=== PATIENT | female | born 1935 | race Caucasian/White ===

== ENCOUNTER 2018-03-24 03:57 | Emergency (ER) | payer MEDICARE, BC, SELFPAY ==
[2018-03-24 04:00] VITALS: BP 173/69; PULSE 68; RESP 18; TEMP 36.6; O2SAT 95; BMI 24.7
--- NOTE | 2018-03-24 04:11 | ED.VISSUMM ---
- ER Visit Summary Date of Service: 03/24/18 Chief Complaint: [] Skin rash History of Present Illness: The patient is a 82 F suspect that she has had poison servando for last 4-5 days. She was doing some yard work pulling weeds prior and thinks she got into poison servando. She has been using cortisone cream and calamine lotion on a rash mainly on her hands and distal arms. She also has it on her face and neck.. This is been helping minimally. Comes in for further evaluation Physical Examination: [] Vital signs reviewed General: Well-nourished well-developed Head: Normocephalic atraumatic Eyes: Pupils equal round and reactive to light extraocular movements intact ENT: TMs clear no hemotympanum no trauma Neck: Nontender full range of motion Cardiovascular: Regular rate rhythm no murmurs normal S1-S2 Respiratory: No distress clear to auscultation bilaterally chest nontender Abdomen: Soft nontender nondistended normal bowel sounds no masses Back: Nontender no CVA tenderness Extremities: Nontender active range of motion ?4 extremities no trauma Skin: Poison servando-like rash between her fingers and on the back of her hands her wrists and her face. Neuro alert oriented cranial nerves II through XII intact normal strength sensation reflexes Test Results: [] Emergency Department Course and Treatment: [] Patient given oral prednisone and will do a 10 day taper. We will continue the calamine lotion. Will follow-up as an outpatient Treatment Plan: [] Disposition: [] Impression: [] And IV dermatitis This note was generated with [employer] dictation software. It may contain incorrect words, spelling, and punctuation that were not noted in review of the chart prior to signing ED Disposition - Plan for ED Patient: Chief Complaint: Rash Referrals: Jude Lemus III, MD [Primary Care Provider] -
--- NOTE | 2018-03-24 04:12 | ED.DEP ---
ED Disposition - Plan for ED Patient: Disposition: Home or Assisted Living Chief Complaint: Rash Instructions: ED Dermatitis Poison Debo Prescriptions: Prednisone [Deltasone] See Taper PO DAILY #15 tab Referrals: Jude Lemus III, MD [Primary Care Provider] -
[2018-03-24] MEDS: predniSONE 20 MG Tablet 60 MG PO (04:19)
[2018-03-24] MEDS: Ondansetron ODT 4 MG Tablet PO (04:19)
== END 2018-03-24 04:25 | disposition home or self-care (01) ==
LOC: ED 04:24
PROVIDERS: Emergency Provider Emergency Medicine; Family Provider Family Medicine; PCP Family Medicine
DX: L23.7 Allergic contact dermatitis due to plants, except food (principal); I10 Essential (primary) hypertension; E78.00 Pure hypercholesterolemia, unspecified; Z79.899 Other long term (current) drug therapy
CPT/HCPCS: 99283

== ENCOUNTER 2018-06-06 08:02 | Emergency (ER) | payer MEDICARE, BC, SELFPAY ==
[2018-06-06 08:03] VITALS: BP 161/77; PULSE 52; RESP 16; TEMP 36.6; O2SAT 100; BMI 24.3
[2018-06-06 08:16] VITALS: BP 172/65; PULSE 58; RESP 13; O2SAT 99
--- NOTE | 2018-06-06 08:27 | EKG12_ITS ---
Test Reason : GEN ILLNESS Blood Pressure : / mmHG Vent. Rate : 052 BPM Atrial Rate : 052 BPM P-R Int : 172 ms QRS Dur : 090 ms QT Int : 464 ms P-R-T Axes : 036 059 066 degrees QTc Int : 431 ms Sinus bradycardia Otherwise normal ECG Confirmed by MONA OVERTON, MARIA DEL CARMEN ([id number]), market editor LAURA DEL RIO ([id number] on 06/10/2018 12:53:32 PM Referred By: HUSEYIN Confirmed By:MARIA DEL CARMEN DUNN MD
--- NOTE | 2018-06-06 08:27 | CT_ITS ---
STUDY: CT BRAIN WITHOUT CONTRAST REASON FOR EXAM: Female, 83 years old. Weakness and dizziness. RADIATION DOSAGE (If Supplied By Facility): CTDIvol = ( 44.99 ) mGy, DLP = ( 796.11 ) mGycm TECHNIQUE: Transaxial CT imaging of the brain was performed without administration of intravenous contrast material. Individualized dose optimization techniques were used for this CT. COMPARISON: 15 November 2004 FINDINGS: Normal soft tissue structures. Normal calvarium. There is mild cerebral atrophy with widening of the extra-axial spaces and ventricular dilatation. There are areas of decreased attenuation within the white matter tracts of the supratentorial brain, consistent with microvascular disease changes. There are small punctate calcifications of the basal ganglia which are seen in the aging brain as a normal variant. Normal brainstem. Normal cerebellum. There is no intracranial hemorrhage. There are no findings of an acute ischemic infarction. Normal visualized paranasal sinuses. CT/Brain/Head without Contrast IMPRESSION: Senescent changes with no evidence of acute intracranial bleed, mass or ischemia. Electronically Signed: Jessee Flores DO at 9:03 EST , Service support ,
--- NOTE | 2018-06-06 08:31 | ED.DCSUM_ITS ---
- ER Visit Summary Date of Service: 06/06/18 Chief Complaint: Fatigue History of Present Illness: The patient is a 83 F who just does not feel well. This started last night. She has no fever but she feels cold. She feels lightheaded and somewhat unsteady on her feet. She will also feels itching on her legs. She denies any vision changes focal weakness or focal sensory deficit. No chest pain shortness of breath, she does have a cough which is somewhat chronic. She has no abdominal pain. She has some nausea but no vomiting. No diarrhea. She has chronic tinnitus which is been acting up more recently especially after upper respiratory infection which she had about a week ago. Physical Examination: She appears her stated age, however she does not appear toxic and does not appear in significant distress. She appears slightly anxious. Slightly dry mucous membranes, no obvious facial deformity. TMs are clear no postnasal drip or pharyngeal erythema. No C-spine tenderness supple neck. Regular rate and rhythm without any obvious murmurs Clear lungs bilaterally speaking in full sentences without any obvious respiratory distress Abdomen soft and nontender no guarding or rebound Moves all extremities without any difficulty or pain. Skin does not show any obvious rashes or lesions, no trauma. Alert oriented ?3 with no gross focal deficit Emergency Department Course and Treatment: Patient has an unremarkable workup she appears well she looks well she does have what I think is a urinary tract infection, I will treat her. I will discharge with follow-up with PCP. Discharge stable condition Impression: Urinary tract infection This note was generated with [employer] dictation software. It may contain incorrect words, spelling, and punctuation that were not noted in review of the chart prior to signing ED Disposition - Plan for ED Patient: Disposition: Home or Assisted Living Chief Complaint: General Illness Instructions: ED UTI Cystitis Female Prescriptions: Smz/Tmp Ds [Bactrim Ds] 1 tab PO BID #19 tab Referrals: Jude Lemus III, MD [Primary Care Provider] - 3-5 Days
[2018-06-06] MEDS: 0.9% Normal Saline 1,000 ML 1000 ML IV (08:35)
[2018-06-06] MEDS: Ondansetron 4 MG/2 ML Vial IV (08:35)
[2018-06-06 08:45] LABS: Absolute Lymphocyte Count 1.12 X10^3/ul (0.83-4.51); Absolute Neutrophil Count 2.9 X10^3/uL (2.0-7.7); Basophil# 0.02 X10^3/uL; Basophil% 0.4 % (0-1); Eosinophil# 0.19 X10^3/uL; Hematocrit 37.9 % (37-47); Hemoglobin 12.8 g/dl (12.0-15.0); Lymphocyte # 1.12 X10^3/ul (4.0); Lymphocyte % 23.7 % (19-41); Mean Corp Hgb Conc 33.8 g/gl (32-36); Mean Corpuscular Hgb 31.8 pg (27.0-32.0); Mean Corpuscular Volume 94.3 fL (81-99); Mean Platelet Vol. 9.3 fl (6.2-12.0); Monocyte# 0.49 X10^3/uL; Monocyte% 10.4 % (0-10); Neutrophil % 61.5 % (47-70); Platelet Count 245 K/mm3 (150-450); RBC Distribution Width CV 12.1 % (11.6-14.6); RBC Distribution Width SD 40.9 fl (35.1-43.9); Red Blood Count 4.02 M/mm3 (4.2-5.4); White Blood Count 4.7 K/mm3 (4.4-11.0)
--- NOTE | 2018-06-06 08:45 | RAD_ITS ---
STUDY: X-RAY CHEST REASON FOR EXAM: Female, 83 years old. Cough, nausea chills and weakness. TECHNIQUE: Single frontal view of the chest. COMPARISON: None. FINDINGS: Mild prominent interstitial markings are present with no distinct focal airspace disease. There is no demonstrated pleural abnormality. Normal size heart. Normal mediastinum and hair. Normal visualized pulmonary arteries. Normal visualized aortic arch and descending thoracic aorta. Normal visualized thoracic spine. Normal visualized ribs, clavicles, and shoulders. There is no demonstrated abnormality of the visualized soft tissue structures of the upper abdomen. RAD/Chest 1 View (Portable) IMPRESSION: Mild prominent interstitial markings with no distinct focal airspace disease. Electronically Signed: Jessee Flores DO at 9:04 EST , Service support ,
[2018-06-06 08:55] LABS: POSITIVE COUNT NO; POSITIVE DIFFERENTIAL NO; POSITIVE MORPHOLOGY NO
[2018-06-06 08:58] LABS: ALB/GLOB Ratio 0.9 RATIO (0.9-2.4); AST(SGOT) 17 U/L (15-37); Alanine Aminotransfer ALT/SGPT 19 U/L (13-56); Albumin, Serum 3.5 g/dL (3.2-5.0); Alkaline Phosphatase 68 U/L (45-117); Anion Gap 7 (5-15); BUN 16 mg/dL (7-18); BUN/Creat Ratio 15.4 RATIO (10-20); Calcium,Total 8.9 mg/dL (8.5-10.1); Chloride 105 mmol/L (98-107); Creatinine, Serum 1.04 mg/dL (0.55-1.02); EST Glomerular Filtration Rate 54 mL/min (>60); Est Glom Filt Rate - Afr Amer 65 mL/min (>60); Estimated Creatinine Clearance 41.26 ml/min; Globulin 3.8 g/dL (2.2-4.2); Glucose 97 mg/dL (74-106); Potassium 3.6 mmol/L (3.5-5.1); Protein, Total 7.3 g/dL (6.4-8.2); Sodium Level 141 mmol/L (136-145)
[2018-06-06 10:02] VITALS: BP 167/63; PULSE 47; RESP 12; O2SAT 100
[2018-06-06 10:32] LABS: Bacteria 0 SEEN /hpf (None Seen); Mucous, Urine 0 SEEN /hpf (<or=2+); Red Blood Cells-Urine 0 SEEN /hpf (0-5); Squamous Epithelial Cells - UA 0 SEEN /hpf (5-10)
[2018-06-06 10:33] LABS: Color, Urine Straw (Yellow); Glucose, Dipstick Normal (Normal); Ketone-Dipstick Negative (Negative); Leukocyte Esterase-Dipstick 100 /ul (Negative); Nitrite-Dipstick Negative (Negative); Occult Blood-Urine 50 /ul (Negative); Protein-Dipstick Negative (Negative); Urine Bilirubin Dipstick Negative (Negative); Urine Clarity Clear (Clear); Urine Urobilinogen Normal (Normal)
[2018-06-06 10:38] LABS: White Blood Cells 0-5 SEEN /hpf (0-5)
[2018-06-06] MEDS: Smz/Tmp Ds Tablet 1 TABLET PO (11:53)
[2018-06-06 11:54] VITALS: BP 157/70; PULSE 48; RESP 13; O2SAT 98
[2018-06-06 12:05] VITALS: BP 157/70; PULSE 46; RESP 16; O2SAT 99
== END 2018-06-06 12:05 | disposition home or self-care (01) ==
PROVIDERS: Emergency Provider Emergency Medicine; Family Provider Family Medicine; PCP Family Medicine
DX: N39.0 Urinary tract infection, site not specified (principal); I10 Essential (primary) hypertension; E78.00 Pure hypercholesterolemia, unspecified; Z79.899 Other long term (current) drug therapy
CPT/HCPCS: 70450; 71045; 80053; 81001; 84484; 85025; 93005; 96361; 96374; 99285; J7030; A4216; J2405

== ENCOUNTER 2018-11-10 03:42 | Emergency (ER) | payer MEDICARE, BC, SELFPAY ==
[2018-11-10 03:43] VITALS: BP 166/64; PULSE 67; RESP 20; TEMP 36.5; O2SAT 98; BMI 24.2
--- NOTE | 2018-11-10 03:56 | EKG12_ITS ---
Test Reason : Blood Pressure : / mmHG Vent. Rate : 058 BPM Atrial Rate : 060 BPM P-R Int : 000 ms QRS Dur : 086 ms QT Int : 438 ms P-R-T Axes : 000 053 067 degrees QTc Int : 429 ms Junctional rhythm Septal infarct , age undetermined Abnormal ECG Confirmed by DANNIE MEEK ([id number]), video news editor ARMIDA TREVIÑO ([id number]) on 11/12/2018 10:57:19 AM Referred By: Confirmed By:DANNIE MEEK
[2018-11-10 03:57] VITALS: BP 128/67; BP 138/63; BP 147/54; PULSE 60; PULSE 62; PULSE 70
--- NOTE | 2018-11-10 04:00 | RAD_ITS ---
STUDY: X-RAY CHEST REASON FOR EXAM: Female, 83 years old. Dizziness TECHNIQUE: 1 view COMPARISON: June 06, 2018 FINDINGS: The lungs are clear and expanded. There is no demonstrated pleural abnormality. Normal size heart. Normal mediastinum and hair. Normal visualized pulmonary arteries. Normal visualized aortic arch and descending thoracic aorta. Normal visualized thoracic spine. Normal visualized ribs, clavicles, and shoulders. There is no demonstrated abnormality of the visualized soft tissue structures of the upper abdomen. RAD/Chest 1 View (Portable) IMPRESSION: Normal x-ray examination of the chest. No acute findings in the lungs Electronically Signed: Jefry Marks MD at 4:19 EDT Tel , Service support ,
--- NOTE | 2018-11-10 04:00 | ED.VISSUMM ---
- ER Visit Summary Date of Service: 11/10/18 Chief Complaint: Dizziness History of Present Illness: The patient is a 83 F presenting with multiple complaints. Patient states that she has felt dizzy with a buzzing sensation in her head. This has been going on for several months. She also complains of nausea and abdominal bloating. She has seen her primary care physician for these symptoms. She was put on a liquid diet for 3 days. She is now on a soft diet. She denies syncope or vertigo. Denies chest pain. She has chronic shortness of breath. Denies fever. Denies other complaints. Physical Examination: Vitals are stable. Patient is afebrile. Alert no acute distress. HEENT exam is unremarkable. Neck is supple. Lungs are clear and equal bilaterally. Heart is regular rate and rhythm. Abdomen is soft mild epigastric tenderness. No guarding or rebound Extremities are unremarkable. Skin is warm and dry. No focal neurologic deficit. Remainder of exam is unremarkable. Emergency Department Course and Treatment: Orthostatics are negative. She was given IV fluids, Zofran. Chest xray shows normal x-ray examination of the chest. No acute findings in the lungs. EKG is sinus bradycardia rate of 58. CBC unremarkable. Chemistries normal except for potassium 3.2, creatinine 1.22. Liver lipase are normal. Clean-catch urine was contaminated with epithelial cells. Straight cath urine shows 0-5 white blood cells, 0-5 red blood cells. Troponin is negative. Repeat troponin is negative. CT abdomen pelvis shows mild mesenteric adenopathy. No acute appendicitis or diverticulitis. A benign left renal cyst. A large hiatal hernia. On reevaluation, patient is resting comfortably. She is advised to follow-up with Dr. Lemus, her primary care physician. Advised return to ED for worsening complaints. Disposition: Discharge home Impression: Dizziness, abdominal pain This note was generated with [employer] dictation software. It may contain incorrect words, spelling, and punctuation that were not noted in review of the chart prior to signing ED Disposition - Plan for ED Patient: Referrals: Jude Lemus III, MD [Primary Care Provider] -
[2018-11-10 04:15] LABS: Bacteria 0 SEEN /hpf (None Seen); Mucous, Urine 0 SEEN /hpf (<or=2+)
[2018-11-10] MEDS: Ondansetron 4 MG/2 ML Vial IV (04:16)
[2018-11-10 04:18] LABS: Color, Urine Yellow (Yellow); Glucose, Dipstick Normal (Normal); Ketone-Dipstick 15 mg/dl (Negative); Leukocyte Esterase-Dipstick 500 /ul (Negative); Nitrite-Dipstick Negative (Negative); Occult Blood-Urine 50 /ul (Negative); Protein-Dipstick 30 mg/dl (Negative); Specific Gravity, Urine 1.015 (1.002-1.030); Urine Bilirubin Dipstick Negative (Negative); Urine Clarity Sl. Cloudy (Clear); Urine Urobilinogen Normal (Normal)
[2018-11-10 04:18] LABS: Absolute Lymphocyte Count 1.66 X10^3/ul (0.83-4.51); Basophil# 0.02 X10^3/uL; Basophil% 0.3 % (0-1); Eosinophil# 0.18 X10^3/uL; Eosinophils% 2.7 % (0-5); Hematocrit 38.7 % (37-47); Hemoglobin 13.6 g/dl (12.0-15.0); Lymphocyte # 1.66 X10^3/ul (4.0); Lymphocyte % 24.6 % (19-41); Mean Corp Hgb Conc 35.1 g/gl (32-36); Mean Corpuscular Hgb 31.7 pg (27.0-32.0); Mean Corpuscular Volume 90.2 fL (81-99); Mean Platelet Vol. 9.3 fl (6.2-12.0); Monocyte# 0.84 X10^3/uL; Monocyte% 12.4 % (0-10); Neutrophil # 4.04 X10^3/uL (2.7-7.7); Neutrophil % 59.9 % (47-70); POSITIVE COUNT NO; POSITIVE DIFFERENTIAL NO; POSITIVE MORPHOLOGY NO; Platelet Count 269 K/mm3 (150-450); RBC Distribution Width CV 12.2 % (11.6-14.6); RBC Distribution Width SD 39.6 fl (35.1-43.9); Red Blood Count 4.29 M/mm3 (4.2-5.4); White Blood Count 6.8 K/mm3 (4.4-11.0)
[2018-11-10 04:32] LABS: AST(SGOT) 20 U/L (15-37); Alanine Aminotransfer ALT/SGPT 19 U/L (13-56); Albumin, Serum 3.8 g/dL (3.2-5.0); Alkaline Phosphatase 60 U/L (45-117); Anion Gap 7 (5-15); BUN 14 mg/dL (7-18); BUN/Creat Ratio 11.5 RATIO (10-20); Chloride 102 mmol/L (98-107); Creatinine, Serum 1.22 mg/dL (0.55-1.02); EST Glomerular Filtration Rate 45 mL/min (>60); Est Glom Filt Rate - Afr Amer 54 mL/min (>60); Estimated Creatinine Clearance 36.48 ml/min; Globulin 3.8 g/dL (2.2-4.2); Glucose 100 mg/dL (74-106); Lipase 218 U/L (73-393); Potassium 3.2 mmol/L (3.5-5.1); Protein, Total 7.6 g/dL (6.4-8.2); Sodium Level 136 mmol/L (136-145)
[2018-11-10 04:39] LABS: Red Blood Cells-Urine 5-10 SEEN /hpf (0-5); Squamous Epithelial Cells - UA 5-10 SEEN /hpf (5-10); White Blood Cells 10-25 SEEN /hpf (0-5)
--- NOTE | 2018-11-10 04:44 | CT_ITS ---
STUDY: CT ABDOMEN AND PELVIS WITH CONTRAST REASON FOR EXAM: Female, 83 years old. Abdominal pain. RADIATION DOSAGE (If Supplied By Facility): CTDIvol = ( 11.76 ) mGy, DLP = ( 809.08 ) mGycm TECHNIQUE: Transaxial images were obtained from the dome of the diaphragm to the symphysis pubis without oral contrast. 100 IV/Oral Isovue 300 was administered. Sagittal and coronal images were reconstructed. Individualized dose optimization techniques were used for this CT. COMPARISON: None. FINDINGS: The lung bases are clear. The liver is normal. No dilated intrahepatic biliary radicles. The gallbladder is normal with no calcifications within it. There is no pericholecystic fluid collection or streakiness The spleen is normal. The pancreas is normal. Both adrenals are normal. A 2.6 cm left renal cyst. No hydronephrosis or calyceal calculi bilaterally A large hiatal hernia.. There is no bowel distention, acute appendicitis or diverticulitis. No constricting lesions are seen in large bowel. The abdominal wall is intact with no hernias. There is no ascites or any free intraperitoneal air. No indication of epiploic appendagitis The vascular structures in the retroperitoneum are normal. Small mesenteric lymph nodes are seen in the right hemiabdomen The bones and joints are normal. The urinary bladder is normal. Previous hysterectomy--. There is no inguinal or pelvic adenopathy. There is no inguinal hernia. . CT/Abdomen/Pelvis WITH Contrast IMPRESSION: Mild mesenteric adenopathy. No acute appendicitis or diverticulitis. A benign left renal cyst.. A large hiatal hernia Electronically Signed: Jefry Marks MD at 7:16 EDT Tel , Service support ,
[2018-11-10 05:13] LABS: Bacteria 0 SEEN /hpf (None Seen); Mucous, Urine 0 SEEN /hpf (<or=2+); Squamous Epithelial Cells - UA 0 SEEN /hpf (5-10)
[2018-11-10 05:15] LABS: Color, Urine Yellow (Yellow); Glucose, Dipstick Normal (Normal); Ketone-Dipstick 5 mg/dl (Negative); Leukocyte Esterase-Dipstick Negative /ul (Negative); Nitrite-Dipstick Negative (Negative); Occult Blood-Urine 25 /ul (Negative); Protein-Dipstick Negative (Negative); Urine Bilirubin Dipstick Negative (Negative); Urine Clarity Clear (Clear); Urine Urobilinogen Normal (Normal)
[2018-11-10 05:28] LABS: Red Blood Cells-Urine 0-5 SEEN /hpf (0-5); Transitional Epithelial - Ur 0-5 SEEN /hpf (0-5); White Blood Cells 0-5 SEEN /hpf (0-5)
[2018-11-10] MEDS: proMETHazine 25 MG/ML Syringe 6.25 MG IV (05:42)
[2018-11-10 06:43] VITALS: BP 145/70; PULSE 56; RESP 18; O2SAT 93
--- NOTE | 2018-11-10 07:37 | ED.DEP ---
ED Disposition - Plan for ED Patient: Instructions: ED Dizziness [facility], ED Abdominal Pain Unkn Cause Referrals: Jude Lemus III, MD [Primary Care Provider] - Royer Guerrero MD [NON-STAFF] -
[2018-11-10 07:55] VITALS: BP 147/70; PULSE 54; RESP 16; O2SAT 99
== END 2018-11-10 07:55 | disposition home or self-care (01) ==
PROVIDERS: Emergency Provider Emergency Medicine; Family Provider Family Medicine; PCP Family Medicine
DX: R42 Dizziness and giddiness (principal); R10.13 Epigastric pain; I10 Essential (primary) hypertension; E78.00 Pure hypercholesterolemia, unspecified; Z79.899 Other long term (current) drug therapy
CPT/HCPCS: 71045; 74177; 80053; 81001; 83690; 84484; 85025; 93005; 96361; 96374; 96375; 99285; J7040; P9612; Q9967; A4216; J2405

== ENCOUNTER 2018-11-21 03:57 | Emergency (ER) | payer MEDICARE, BC, SELFPAY ==
[2018-11-21 03:58] VITALS: BP 166/59; PULSE 60; RESP 16; TEMP 36.5; O2SAT 98; BMI 26.8
--- NOTE | 2018-11-21 04:23 | EKG12_ITS ---
Test Reason : SOB Blood Pressure : / mmHG Vent. Rate : 052 BPM Atrial Rate : 052 BPM P-R Int : 166 ms QRS Dur : 086 ms QT Int : 440 ms P-R-T Axes : 055 054 073 degrees QTc Int : 409 ms Sinus bradycardia Otherwise normal ECG Confirmed by MONA OVERTON, MARIA DEL CARMEN ([id number]), content editor ARMIDA TREVIÑO ([id number]) on 11/24/2018 1:22:19 PM Referred By: DONYA Confirmed By:MARIA DEL CARMEN DUNN MD
--- NOTE | 2018-11-21 04:23 | RAD_ITS ---
STUDY: X-RAY CHEST REASON FOR EXAM: Female, 83 years old. Shortness of breath TECHNIQUE: Single AP portable view of the chest. COMPARISON: November 10, 2018 FINDINGS: There are superimposed monitor leads. There are areas of hyperinflation. There is no focal parenchymal abnormality. Stable mild elevation of the right hemidiaphragm. There is no demonstrated pleural abnormality. Normal size heart. Normal mediastinum and hair. Normal visualized pulmonary arteries. Normal visualized aortic arch and descending thoracic aorta. Normal visualized thoracic spine. Normal visualized ribs, clavicles, and shoulders. There is no demonstrated abnormality of the visualized soft tissue structures of the upper abdomen. RAD/Chest 1 View (Portable) IMPRESSION: Component of COPD suspected. No acute cardiopulmonary disease. No significant interval change. Electronically Signed: Za Lundberg MD at 4:52 EDT , Service support ,
[2018-11-21 04:39] LABS: Absolute Lymphocyte Count 1.03 X10^3/ul (0.83-4.51); Absolute Neutrophil Count 4.3 X10^3/uL (2.0-7.7); Basophil# 0.03 X10^3/uL; Basophil% 0.5 % (0-1); Eosinophil# 0.12 X10^3/uL; Eosinophils% 1.9 % (0-5); Hematocrit 35.1 % (37-47); Hemoglobin 12.2 g/dl (12.0-15.0); Lymphocyte # 1.03 X10^3/ul (4.0); Lymphocyte % 16.4 % (19-41); Mean Corp Hgb Conc 34.8 g/gl (32-36); Mean Corpuscular Hgb 31.3 pg (27.0-32.0); Mean Platelet Vol. 9.4 fl (6.2-12.0); Monocyte# 0.81 X10^3/uL; Monocyte% 12.9 % (0-10); Neutrophil # 4.29 X10^3/uL (2.7-7.7); Neutrophil % 68.1 % (47-70); Platelet Count 224 K/mm3 (150-450); RBC Distribution Width CV 12.2 % (11.6-14.6); RBC Distribution Width SD 39.9 fl (35.1-43.9); White Blood Count 6.3 K/mm3 (4.4-11.0)
[2018-11-21 04:40] LABS: POSITIVE COUNT NO; POSITIVE DIFFERENTIAL NO; POSITIVE MORPHOLOGY NO
[2018-11-21 04:53] LABS: Anion Gap 10 (5-15); BUN 11 mg/dL (7-18); BUN/Creat Ratio 9.8 RATIO (10-20); Calcium,Total 9.2 mg/dL (8.5-10.1); Chloride 104 mmol/L (98-107); Creatinine, Serum 1.12 mg/dL (0.55-1.02); EST Glomerular Filtration Rate 50 mL/min (>60); Est Glom Filt Rate - Afr Amer 60 mL/min (>60); Estimated Creatinine Clearance 38.31 ml/min; Glucose 117 mg/dL (74-106); Potassium 3.4 mmol/L (3.5-5.1); Sodium Level 140 mmol/L (136-145)
[2018-11-21 04:55] LABS: Color, Urine Yellow (Yellow); Glucose, Dipstick Normal (Normal); Ketone-Dipstick Negative (Negative); Leukocyte Esterase-Dipstick 100 /ul (Negative); Nitrite-Dipstick Negative (Negative); Occult Blood-Urine 25 /ul (Negative); Protein-Dipstick Negative (Negative); Urine Bilirubin Dipstick Negative (Negative); Urine Clarity Clear (Clear); Urine Urobilinogen Normal (Normal)
[2018-11-21 04:59] LABS: Bacteria RARE /hpf (None Seen); Red Blood Cells-Urine 0-5 SEEN /hpf (0-5); White Blood Cells 5-10 SEEN /hpf (0-5)
[2018-11-21 05:00] LABS: Hyaline Cast 0-5 SEEN /lpf (0-5); Mucous, Urine RARE /hpf (<or=2+); Squamous Epithelial Cells - UA 0-5 SEEN /hpf (5-10)
[2018-11-21 05:04] VITALS: BP 137/56; PULSE 57; RESP 16; TEMP 37; O2SAT 96
[2018-11-21] MEDS: Cephalexin 250 MG Capsule 500 MG PO (05:21)
[2018-11-21] MEDS: Ondansetron 4 MG/2 ML Vial IV (05:31)
[2018-11-21 06:27] VITALS: BP 151/55; PULSE 52; RESP 18; TEMP 36.8; O2SAT 98
--- NOTE | 2018-11-21 06:27 | ED.VISSUMM ---
- ER Visit Summary Date of Service: 11/21/18 Chief Complaint: Lightheadedness History of Present Illness: The patient is a 83 F presenting with lightheadedness, nausea, shortness of breath. She states she has had the symptoms for quite a while. Symptoms have been intermittent. She saw her primary care physician on and he felt that her symptoms were all related to anxiety/panic attacks. She was started on sertraline on . She states she is starting to feel improved. She denies chest pain. Denies syncope. Denies abdominal pain. Denies fever or other complaints. Physical Examination: Vitals are stable. Patient is afebrile. Alert no acute distress. HEENT exam is unremarkable. Neck is supple. Lungs are clear and equal bilaterally. Heart is regular rate and rhythm. Abdomen is soft nontender nondistended. Extremities are unremarkable. Skin is warm and dry. No focal neurologic deficit. Remainder of exam is unremarkable. Emergency Department Course and Treatment: EKG is sinus bradycardia rate of 52, unchanged from previous. Chest x-ray shows no acute process. CBC, chemistries unremarkable other than potassium 3.4, glucose 117, creatinine 1.12. Urinalysis shows positive leukocytes, 5-10 white blood cells. Urine culture was sent. Troponin is negative. She was given Zofran and Keflex in the ED. She is feeling improved. She walked to bathroom with a steady gait. She declined admission. She will follow-up with her primary care physician. She is advised to return to ED if worsening complaints. Disposition: Discharge home Impression: Lightheadedness, UTI, anxiety This note was generated with [employer] dictation software. It may contain incorrect words, spelling, and punctuation that were not noted in review of the chart prior to signing ED Disposition - Plan for ED Patient: Disposition: Home or Assisted Living Instructions: ED Dizziness [facility] Prescriptions: Cephalexin [Keflex] 500 mg PO Q12 #14 capsule Referrals: Jude Lemus III, MD [Primary Care Provider] -
--- NOTE | 2018-11-21 06:30 | ED.DEP ---
ED Disposition - Plan for ED Patient: Instructions: ED Dizziness [facility] Prescriptions: Cephalexin [Keflex] 500 mg PO Q12 #14 capsule Referrals: Jude Lemus III, MD [Primary Care Provider] -
[2018-11-21 06:32] VITALS: BP 151/55; PULSE 52; RESP 18; O2SAT 98
== END 2018-11-21 06:39 | disposition home or self-care (01) ==
PROVIDERS: Emergency Provider Emergency Medicine; Family Provider Family Medicine; PCP Family Medicine
DX: R42 Dizziness and giddiness (principal); N39.0 Urinary tract infection, site not specified; F41.9 Anxiety disorder, unspecified; I10 Essential (primary) hypertension; E78.00 Pure hypercholesterolemia, unspecified; Z79.899 Other long term (current) drug therapy
CPT/HCPCS: 71045; 80048; 81001; 84484; 85025; 87086; 87088; 93005; 96374; 99285; A4216; J2405